=== PATIENT | female | born 2000 | race Caucasian/White ===

== ENCOUNTER 2024-06-22 07:23 | Emergency (ER) | payer SELFPAY ==
[~2024-06-22] VITALS: Ht 167.6 cm; Wt 90.9 kg
[2024-06-22 07:25] VITALS: TEMP 97.6
[2024-06-22] MEDS ORDERED: Famotidine 20 MG TAB PO ONE (08:00)
[2024-06-22 08:26] LABS: BASO % 0.3 % (0.0-2.0); EOS # 0.1 K/mm3 (0.0-0.7); EOS % 0.6 % (0.0-4.0); GRAN # 6.4 K/mm3 (1.4-6.5); GRAN % 62.5 % (42.2-75.2); HEMATOCRIT 42.1 % (37.0-47.0); LYMPH # 3.1 K/mm3 (1.2-3.4); LYMPH % 30.6 % (20.0-51.0); MEAN CELL VOLUME 86 fl (80.0-100.0); MEAN CORPUSCULAR HEMOGLOBIN 31 pg (27-31); MEAN CORPUSCULAR HGB CONC 36 g/dl (33.0-37.0); MEAN PLATELET VOLUME 10.6 fl (7.4-10.4); MONO # 0.6 K/mm3 (0.1-0.6); MONO % 5.8 % (1.7-9.3); PLATELET COUNT 213 K/mm3 (130-400); RED BLOOD COUNT 4.87 M/mm3 (4.10-5.30); REDCELL DISTRIBUTION WIDTH-CV 11.8 % (11.5-14.5)
[2024-06-22 08:45] LABS: ALBUMIN 4.1 g/dL (3.5-5.0); BILIRUBIN,TOTAL 1.4 mg/dL (0.2-1.2); CREATININE, serum 0.73 mg/dL (0.57-1.11); POTASSIUM 3.7 mEq/L (3.5-4.5); TOTAL PROTEIN 7.6 g/dl (6.2-8.1)
[2024-06-22] MEDS ORDERED: Acetaminophen 500 MG TAB PO ONE (08:45)
[2024-06-22] MEDS ORDERED: Ibuprofen 600 MG TAB PO ONE (08:45)
[2024-06-22 08:51] LABS: TROPONIN-I 0.01 ng/mL (0.00-0.033)
[2024-06-22] MEDS ORDERED: VISTARIL 2525 MG/CAP PO (09:10)
[2024-06-22 09:43] VITALS: BP 136/85; PULSE 93
--- NOTE | 2024-06-22 12:18 | NUR ---
SW was called to ED by nurse to provide resources to patient due to not having a place to stay [place]. SW met with patient to provide all local resources for alf. Patient had no further questions, comments nor concerns at this time.
--- NOTE | 2024-06-22 12:21 | NUR ---
WILLIAM called by nurse to assist with providing patient PCPs in the area. SW provided patient with documenation listing local agencies for choice. WILLIAM also informed to fax discharge paperwork to [facility] Newman faxed to [phone].
== END 2024-06-22 09:43 | disposition home or self-care (01) ==
LOC: COL.ER 07:23
PROVIDERS: Emergency Medicine
DX: R07.9 Chest pain, unspecified (principal); F41.9 Anxiety disorder, unspecified